=== PATIENT | female | born 1940 | race Caucasian/White ===

== ENCOUNTER → 2016-11-26 | Outpatient (CLI) | payer MEDICARE, OTHER ==
[~2016-11-26] MED LIST: ASPI1TAB69 PO; BALANCED SALT SOLN OPHT IRRIG 15 ML BTL ONE; CELL1DRO EACH EYE; HYAL20CA2 PO; HYPROMELLOSE 0.3 % OPTH GEL 10 GM (0.34 FL OZ) TUBE ONE; KRIL1CAP11 PO; LOSA50TA2 PO; MULTTAB67 PO; PHENYLEPHRINE HCL 2.5% OPTH SOLN 2 ML BTL ONE; PROPARACAINE HCL 0.5% OPHT SOLN 15 ML BTL ONE; REST0.05 EACH EYE; SYST0.4D2 EACH EYE; SYSTSOL9 EACH EYE; TROPICAMIDE 1% OPHT SOLN 15 ML BTL ONE; VITA500T PO
== END ==
LOC: PHSDC 08:46
PROVIDERS: ATTEND Ophthalmology
DX: H26.492 Other secondary cataract, left eye (principal)